=== PATIENT | female | born 1970 | race Caucasian/White ===

== ENCOUNTER → 2023-09-29 09:25 | Outpatient (REF) | payer BC, SELFPAY ==
[2023-09-29 10:13] LABS: % Basophils 1.1 % (0-2); % Eosinophils 4.1 % (0-6); % Immature Granulocytes 0.2 % (0-0.5); % Lymphocytes 40.3 % (20.5-51.1); % Neutrophils 45.3 % (42.2-75.2); Absolute Basophils 0.1 10^3/uL (0-0.2); Absolute Eosinophils 0.2 10^3/uL (0-0.7); Absolute Lymphocytes 1.9 10^3/uL (1.2-3.4); Absolute Monocytes 0.4 10^3/uL (0.1-0.6); Absolute Neutrophils 2.1 10^3/uL (1.4-6.5); Hematocrit 38.9 % (37.0-47.0); Hemoglobin 13.1 g/dL (12.0-16.0); Mean Corp Hgb Conc. 33.7 g/dL (33.0-37.0); Mean Platelet Volume 8.4 fL (7.4-10.4); Nucleated Red Blood Cells % 0 %; Platelet Count 293 10^3/uL (130-400); Red Blood Cell Count 4.37 10^6/uL (4.20-5.40); Red Cell Dist. Width 13.2 % (11.5-14.5); White Blood Cell Count 4.7 10^3/uL (4.8-10.8)
[2023-09-29 10:39] LABS: ALT (SGPT) 25 U/L (0-35); AST (SGOT) 30 U/L (14-36); Albumin 4.4 g/dl (3.5-5.0); Alkaline Phosphatase 77 U/L (38-126); Blood Urea Nitrogen 24 mg/dl (7-17); Calcium 9.5 mg/dl (8.4-10.2); Carbon Dioxide 27 mmol/L (22-30); Chloride 103 mmol/L (98-107); Glucose 95 mg/dl (70-99); HDL Cholesterol 66 mg/dl; LDL Cholesterol, Calculated 188 mg/dl; Potassium 4.4 mmol/L (3.5-5.1); Sodium 136 mmol/L (135-145); Total Cholesterol 265 mg/dl (50-199); Total Protein 7.1 g/dl (6.3-8.2); Triglyceride 59 mg/dl (10-149); Very Low Density Lipoprotein 11 mg/dl (0-30); eGFR > 60.00
[2023-09-29 11:15] LABS: TSH Reflex To Free T4 1.61 uIU/ml (0.47-4.68)
[2023-09-29 11:24] LABS: Free T3 3.26 pg/ml (2.77-5.27)
[2023-09-29 13:58] LABS: Glycohemoglobin (HgbA1c) 6.1 % (4.0-5.6)
== END ==
LOC: REG 09:25
PROVIDERS: ATTENDING PHYSICIAN Nurse Practitioner Family
DX: E66.9 Obesity, unspecified (principal); Z00.00 Encounter for general adult medical examination without abnormal findings; E03.9 Hypothyroidism, unspecified
CPT/HCPCS: 36415; 80053; 80061; 83036; 84443; 84481; 85025

== ENCOUNTER → 2023-10-04 14:48 | Outpatient (REF) | payer BC, SELFPAY | LOC: HWRAD 14:48 | PROVIDERS: ATTENDING PHYSICIAN Surgery; FAMILY PHYSICIAN Internal Medicine | DX: R07.2 Precordial pain (principal); N64.4 Mastodynia; J45.20 Mild intermittent asthma, uncomplicated | CPT/HCPCS: 71260; Q9967 ==

== ENCOUNTER → 2023-10-11 19:45 | Outpatient (REF) | payer BC, SELFPAY | LOC: WDC 19:45 | PROVIDERS: ATTENDING PHYSICIAN Nurse Practitioner Family; FAMILY PHYSICIAN Surgery | DX: Z12.31 Encounter for screening mammogram for malignant neoplasm of breast (principal) | CPT/HCPCS: 77063; 77067 ==

== ENCOUNTER → 2023-10-18 10:18 | Outpatient (REF) | payer BC, SELFPAY | LOC: HWRAD 10:18 | PROVIDERS: ATTENDING PHYSICIAN Nurse Practitioner Family | DX: Z00.00 Encounter for general adult medical examination without abnormal findings (principal); Z13.820 Encounter for screening for osteoporosis | CPT/HCPCS: 77080 ==

== ENCOUNTER → 2024-07-13 11:55 | Outpatient (REF) | payer BC, SELFPAY ==
[2024-07-13 13:06] LABS: ALT (SGPT) 28 U/L (0-35); AST (SGOT) 28 U/L (14-36); Albumin 4.4 g/dl (3.5-5.0); Alkaline Phosphatase 74 U/L (38-126); Blood Urea Nitrogen 16 mg/dl (7-17); Calcium 9.4 mg/dl (8.4-10.2); Carbon Dioxide 32 mmol/L (22-30); Chloride 101 mmol/L (98-107); Glucose 99 mg/dl (70-99); HDL Cholesterol 53 mg/dl; LDL Cholesterol, Calculated 148 mg/dl; Potassium 4.4 mmol/L (3.5-5.1); Sodium 139 mmol/L (135-145); Total Cholesterol 221 mg/dl (50-199); Total Protein 6.8 g/dl (6.3-8.2); Triglyceride 100 mg/dl (10-149); Very Low Density Lipoprotein 20 mg/dl (0-30); eGFR > 60.00
[2024-07-13 14:05] LABS: Glycohemoglobin (HgbA1c) 5.6 % (4.0-5.6)
== END ==
LOC: REG 11:55
PROVIDERS: ATTENDING PHYSICIAN Family Medicine
DX: E78.01 Familial hypercholesterolemia (principal); R73.03 Prediabetes
CPT/HCPCS: 36415; 80053; 80061; 83036

== ENCOUNTER → 2024-10-17 12:02 | Outpatient (REF) | payer BC, SELFPAY | LOC: HWWDC 12:02 | PROVIDERS: ATTENDING PHYSICIAN Family Medicine; OTHER PHYSICIAN Obstetrics & Gynecology; REFERRING PHYSICIAN Surgery | DX: Z12.31 Encounter for screening mammogram for malignant neoplasm of breast (principal) | CPT/HCPCS: 77063; 77067 ==

== ENCOUNTER → 2024-12-14 10:10 | Outpatient (REF) | payer BC, SELFPAY ==
[2024-12-14 11:12] LABS: % Basophils 0.8 % (0-2); % Eosinophils 4.2 % (0-6); % Immature Granulocytes 0.2 % (0-0.5); % Monocytes 8.6 % (1.7-9.3); % Neutrophils 54.2 % (42.2-75.2); Absolute Basophils 0.1 10^3/uL (0-0.2); Absolute Eosinophils 0.3 10^3/uL (0-0.7); Absolute Lymphocytes 1.9 10^3/uL (1.2-3.4); Absolute Monocytes 0.5 10^3/uL (0.1-0.6); Absolute Neutrophils 3.2 10^3/uL (1.4-6.5); Hematocrit 37.7 % (37.0-47.0); Hemoglobin 12.7 g/dL (12.0-16.0); Mean Corp Hgb Conc. 33.7 g/dL (33.0-37.0); Mean Corpuscular Hgb 30.5 pg (27.0-31.0); Mean Corpuscular Volume 90.4 fL (81.0-99.0); Mean Platelet Volume 8.5 fL (7.4-10.4); Nucleated Red Blood Cells % 0 %; Platelet Count 313 10^3/uL (130-400); Red Blood Cell Count 4.17 10^6/uL (4.20-5.40); Red Cell Dist. Width 13.9 % (11.5-14.5); White Blood Cell Count 5.9 10^3/uL (4.8-10.8)
[2024-12-14 11:40] LABS: ALT (SGPT) 21 U/L (0-35); AST (SGOT) 21 U/L (14-36); Albumin 4.2 g/dl (3.5-5.0); Alkaline Phosphatase 67 U/L (38-126); Blood Urea Nitrogen 14 mg/dl (7-17); Calcium 9.5 mg/dl (8.4-10.2); Carbon Dioxide 30 mmol/L (22-30); Chloride 107 mmol/L (98-107); Glucose 99 mg/dl (70-99); HDL Cholesterol 53 mg/dl; LDL Cholesterol, Calculated 140 mg/dl; Potassium 4.3 mmol/L (3.5-5.1); Sodium 139 mmol/L (135-145); Total Bilirubin 0.9 mg/dl (0.2-1.3); Total Cholesterol 212 mg/dl (50-199); Total Protein 6.6 g/dl (6.3-8.2); Triglyceride 99 mg/dl (10-149); Very Low Density Lipoprotein 19 mg/dl (0-30); eGFR > 60.00
[2024-12-14 12:04] LABS: Vitamin D, 25-OH*** 46.8 ng/mL (30-80)
[2024-12-14 12:17] LABS: TSH Reflex To Free T4 1.71 uIU/ml (0.47-4.68)
[2024-12-14 12:31] LABS: Glycohemoglobin (HgbA1c) 5.7 % (4.0-5.6)
[2024-12-14 12:53] LABS: Folate > 20.0 ng/ml (2.76-20); Vitamin B12 > 1000 pg/ml (239-931)
[2024-12-16 18:45] LABS: Hepatitis B Surface Antigen Negative (Negative)
[2024-12-16 19:03] LABS: Hepatitis C Antibody Negative (Negative)
== END ==
LOC: REG 10:10
PROVIDERS: ATTENDING PHYSICIAN Nurse Practitioner Women's Health; FAMILY PHYSICIAN Family Medicine
DX: R53.83 Other fatigue (principal); E78.01 Familial hypercholesterolemia; R73.03 Prediabetes; N95.9 Unspecified menopausal and perimenopausal disorder; K14.6 Glossodynia
CPT/HCPCS: 36415; 80053; 80061; 82306; 82607; 82746; 83036; 84443; 85025; 86780; 86803; 87340; 87389

== ENCOUNTER → 2025-03-12 14:16 | Outpatient (REF) | payer BC, SELFPAY | LOC: HWRAD 14:16 | PROVIDERS: ATTENDING PHYSICIAN Obstetrics & Gynecology Gynecology | DX: N95.0 Postmenopausal bleeding (principal) | CPT/HCPCS: 76830; 76856 ==

== ENCOUNTER → 2025-04-07 07:14 | Outpatient (REF) | payer BC, SELFPAY | LOC: HWRAD 07:14 | PROVIDERS: ATTENDING PHYSICIAN Family Medicine | DX: R10.11 Right upper quadrant pain (principal) | CPT/HCPCS: 76700 ==

== ENCOUNTER → 2025-04-14 12:53 | Outpatient (REF) | payer BC, SELFPAY | LOC: HWRAD 12:53 | PROVIDERS: ATTENDING PHYSICIAN Urology; FAMILY PHYSICIAN Family Medicine | DX: N39.3 Stress incontinence (female) (male) (principal); N81.10 Cystocele, unspecified; N81.6 Rectocele; N95.8 Other specified menopausal and perimenopausal disorders; M62.89 Other specified disorders of muscle; N39.0 Urinary tract infection, site not specified; N94.10 Unspecified dyspareunia | CPT/HCPCS: 76770 ==

== ENCOUNTER 2025-04-22 17:19 | Outpatient (RCR) | payer BC, SELFPAY | END 2025-04-22 23:59 | disposition home or self-care (01) | LOC: RPT 17:19 | PROVIDERS: ATTENDING PHYSICIAN Obstetrics & Gynecology Gynecology; FAMILY PHYSICIAN Family Medicine | DX: R32 Unspecified urinary incontinence (principal); Z73.6 Limitation of activities due to disability | CPT/HCPCS: 97110; 97112; 97140; 97162; 97530 ==

== ENCOUNTER 2025-05-14 08:32 | Outpatient (RCR) | payer BC, SELFPAY | END 2025-05-14 23:59 | disposition home or self-care (01) | LOC: RPT 08:32 | PROVIDERS: ATTENDING PHYSICIAN Obstetrics & Gynecology Gynecology; FAMILY PHYSICIAN Family Medicine | DX: R32 Unspecified urinary incontinence (principal); Z73.6 Limitation of activities due to disability | CPT/HCPCS: 97110; 97112; 97140 ==

== ENCOUNTER → 2025-05-20 11:59 | Outpatient (REF) | payer BC, SELFPAY ==
[2025-05-20 13:21] LABS: Hematocrit 39.7 % (37.0-47.0); Hemoglobin 12.9 g/dL (12.0-16.0); Mean Corp Hgb Conc. 32.5 g/dL (33.0-37.0); Mean Corpuscular Volume 92.5 fL (81.0-99.0); Nucleated Red Blood Cells % 0 %; Platelet Count 317 10^3/uL (130-400); Red Cell Dist. Width 13.0 % (11.5-14.5)
[2025-05-20 13:40] LABS: ALT (SGPT) 22 U/L (0-35); AST (SGOT) 24 U/L (14-36); Albumin 4.5 g/dl (3.5-5.0); Alkaline Phosphatase 57 U/L (38-126); Blood Urea Nitrogen 17 mg/dl (7-17); Calcium 9.6 mg/dl (8.4-10.2); Carbon Dioxide 28 mmol/L (22-30); Chloride 105 mmol/L (98-107); Glucose 97 mg/dl (70-99); Potassium 4.2 mmol/L (3.5-5.1); Sodium 136 mmol/L (135-145); Total Protein 7.0 g/dl (6.3-8.2); eGFR > 60.00
[2025-05-20 13:43] LABS: C-Reactive Protein < 5.00 mg/L (0.0-10.00)
[2025-05-21 19:10] LABS: HLA-B27 Negative (Negative)
[2025-05-22 01:31] LABS: ds-DNA Ab, IgG Reflex To Titer 4 IU (0-24)
[2025-05-22 01:56] LABS: ANA, IgG Reflex to HEp-2 None Detected (None Detected)
[2025-05-22 06:31] LABS: SSA 52 (Ro)(ENA) Ab, IgG 2 AU/mL (0-40); SSA 60 (Ro)(ENA) Ab, IgG 0 AU/mL (0-40); SSB (La)(ENA) Ab, IgG 1 AU/mL (0-40)
[2025-05-22 15:04] LABS: Lyme Antibody Screen, EIA Negative (Negative)
[2025-05-22 15:08] LABS: Rheumatoid Agglutinin Less Than 10 IU (<10 IU)
== END ==
LOC: REG 11:59
PROVIDERS: ATTENDING PHYSICIAN Orthopaedic Surgery Hand Surgery; FAMILY PHYSICIAN Family Medicine; REFERRING PHYSICIAN Nurse Practitioner Family
DX: M18.11 Unilateral primary osteoarthritis of first carpometacarpal joint, right hand (principal); M18.12 Unilateral primary osteoarthritis of first carpometacarpal joint, left hand; G56.03 Carpal tunnel syndrome, bilateral upper limbs; M79.641 Pain in right hand; M79.642 Pain in left hand
CPT/HCPCS: 80053; 85025; 85652; 86038; 86140; 86160; 86225; 86235; 86430; 86618; 86812

== ENCOUNTER → 2025-05-22 12:36 | Outpatient (REF) | payer BC, SELFPAY | LOC: EMG 12:36 | PROVIDERS: ATTENDING PHYSICIAN Orthopaedic Surgery Hand Surgery; FAMILY PHYSICIAN Family Medicine | DX: G56.03 Carpal tunnel syndrome, bilateral upper limbs (principal); R20.0 Anesthesia of skin | CPT/HCPCS: 95886; 95911 ==

== ENCOUNTER 2025-06-24 08:29 | Outpatient (RCR) | payer BC, SELFPAY | END 2025-06-24 23:59 | disposition home or self-care (01) | LOC: RPT 08:29 | PROVIDERS: ATTENDING PHYSICIAN Obstetrics & Gynecology Gynecology; FAMILY PHYSICIAN Family Medicine | DX: R32 Unspecified urinary incontinence (principal); Z73.6 Limitation of activities due to disability; N81.10 Cystocele, unspecified; N81.6 Rectocele; R39.15 Urgency of urination; R35.0 Frequency of micturition | CPT/HCPCS: 97014; 97112; 97530 ==

== ENCOUNTER 2025-07-15 08:20 | Outpatient (RCR) | payer BC, SELFPAY | END 2025-07-15 23:59 | disposition home or self-care (01) | LOC: RPT 08:20 | PROVIDERS: ATTENDING PHYSICIAN Obstetrics & Gynecology Gynecology; FAMILY PHYSICIAN Family Medicine | DX: R32 Unspecified urinary incontinence (principal); Z73.6 Limitation of activities due to disability; N81.10 Cystocele, unspecified; N81.6 Rectocele; R39.15 Urgency of urination; R35.0 Frequency of micturition | CPT/HCPCS: 97014; 97112; 97530 ==

== ENCOUNTER 2025-07-15 17:07 | Outpatient (RCR) | payer BC, SELFPAY | END 2025-07-15 23:59 | disposition home or self-care (01) | LOC: ROT 17:07 | PROVIDERS: ATTENDING PHYSICIAN Orthopaedic Surgery Hand Surgery; FAMILY PHYSICIAN Family Medicine | DX: M79.642 Pain in left hand (principal); M79.641 Pain in right hand; Z73.6 Limitation of activities due to disability; G56.03 Carpal tunnel syndrome, bilateral upper limbs; M19.042 Primary osteoarthritis, left hand; M19.041 Primary osteoarthritis, right hand | CPT/HCPCS: 97018; 97110; 97140; 97166; 97535 ==